=== PATIENT | male | born 1995 | race Caucasian/White ===

== ENCOUNTER 2018-12-04 21:41 | Inpatient (IN) | payer SELFPAY ==
[~2018-12-04] VITALS: Ht 167.6 cm; Wt 115.2 kg
[2018-12-04 21:54] VITALS: Ht 167.6 cm; Wt 115.2 kg
[2018-12-04 23:08] LABS: BASOPHIL % 0.3 % (0-2); PLATELET COUNT 190 x10^3mcL (130-400); RED CELL DISTRIBUTION WIDTH 13.3 % (11.5-14.5)
[2018-12-04 23:12] LABS: CALCIUM 9.2 mg/dL (8.5-10.1); CARBON DIOXIDE 28.8 mmol/L (21-32); CHLORIDE SERUM 104 mmol/L (98-107); GFR1 > 60 mL/min; GLUCOSE SERUM 138 mg/dL (74-106); POTASSIUM SERUM 3.6 mmol/L (3.5-5.1); SODIUM SERUM 144 mmol/L (136-145)
[2018-12-04 23:17] LABS: ALBUMIN 4.2 g/dL (3.4-5.0); ALKALINE PHOSPHATASE 72 U/L (46-116); ALT/SGPT 40 U/L (16-63); AST/SGOT 14 U/L (15-37); BILIRUBIN TOTAL 0.4 mg/dL (0.20-1.00)
[2018-12-05 02:39] LABS: CHOLESTEROL/HDL RATIO 4.4; MAGNESIUM 1.7 mg/dL (1.8-2.4); PHOSPHOROUS 4.5 mg/dL (2.5-4.9)
[2018-12-05 03:19] LABS: UA SPECIFIC GRAVITY 1.025 (1.005-1.035); microscopic required? YES; urine erythrocyte TRACE (NEGATIVE)
[2018-12-05 03:35] VITALS: BP 126/75
[2018-12-05 04:52] VITALS: BP 104/46
[2018-12-05 08:10] LABS: BASOPHIL % 0.2 % (0-2); PLATELET COUNT 173 x10^3mcL (130-400); RED CELL DISTRIBUTION WIDTH 13.4 % (11.5-14.5)
[2018-12-05 08:20] LABS: CALCIUM 8.8 mg/dL (8.5-10.1); CARBON DIOXIDE 29.3 mmol/L (21-32); CHLORIDE SERUM 106 mmol/L (98-107); CREATININE SERUM 0.9 mg/dL (0.7-1.3); GFR1 > 60 mL/min; GLUCOSE SERUM 100 mg/dL (74-106); SODIUM SERUM 143 mmol/L (136-145)
[2018-12-05 16:44] VITALS: BP 116/68
[2018-12-05 20:56] VITALS: BP 111/63
[2018-12-06 05:28] VITALS: BP 108/44
[2018-12-06 05:42] LABS: BASOPHIL % 0.3 % (0-2); PLATELET COUNT 163 x10^3mcL (130-400); RED CELL DISTRIBUTION WIDTH 13.5 % (11.5-14.5)
[2018-12-06 05:54] LABS: CALCIUM 9.2 mg/dL (8.5-10.1); CARBON DIOXIDE 26.2 mmol/L (21-32); CHLORIDE SERUM 105 mmol/L (98-107); CREATININE SERUM 0.9 mg/dL (0.7-1.3); GFR1 > 60 mL/min; GLUCOSE SERUM 87 mg/dL (74-106); PHOSPHOROUS 4.4 mg/dL (2.5-4.9); POTASSIUM SERUM 4.1 mmol/L (3.5-5.1); SODIUM SERUM 142 mmol/L (136-145)
[2018-12-06 09:17] VITALS: BP 119/62
[2018-12-06] MEDS ORDERED: LEVAQUIN750 MG PO (12:23)
[2018-12-06] MEDS ORDERED: FLA500 PO (12:23)
[2018-12-06 12:48] VITALS: BP 119/62
[2018-12-06 13:23] VITALS: BP 139/83
== END 2018-12-06 15:05 | disposition home or self-care (01) | DRG 392 ==
LOC: ED 21:41 → MU 12-05 00:57
PROVIDERS: Emergency Medicine; ADMIT Internal Medicine
DX: K57.20 Diverticulitis of large intestine with perforation and abscess without bleeding (principal); Z68.41 Body mass index [BMI] 40.0-44.9, adult; K59.00 Constipation, unspecified; D72.829 Elevated white blood cell count, unspecified; E66.01 Morbid (severe) obesity due to excess calories; E78.5 Hyperlipidemia, unspecified; Z79.899 Other long term (current) drug therapy
CPT/HCPCS: 83880; J1956; J2543; J3490; J7030; Q0092